=== PATIENT | female | born 1995 | race Caucasian/White ===

== ENCOUNTER 2021-05-08 04:46 | Emergency (ER) | payer OTHER ==
[2021-05-08 05:09] VITALS: BP 130/90; PULSE 65; TEMP 97.8; BMI 31.2
[2021-05-08] MEDS ORDERED: SODIUM CHLORIDE NASAL SPRAY 44 ML BOTTLE NS ONE (05:35)
== END 2021-05-08 06:32 | disposition home or self-care (01) ==
LOC: JER 04:46
DX: R09.81 Nasal congestion (principal); R05.1 Acute cough
CPT/HCPCS: 99283-25

== ENCOUNTER 2023-01-12 22:48 | Emergency (ER) | payer OTHER ==
[2023-01-12 22:53] VITALS: BP 121/83; PULSE 83; RESP 19; TEMP 98.3; BMI 31.8
[2023-01-12] MEDS ORDERED: KETOROLAC TROMETHAMINE 30 MG/1 ML VIAL IM ONE (23:58)
[2023-01-13] MEDS ORDERED: KETOROLAC TROMETHAMINE 15 MG/ML VIAL ONE (00:01)
== END 2023-01-13 01:19 | disposition home or self-care (01) ==
LOC: JER 22:48
PROC: 3E0233Z Introduction of Anti-inflammatory into Muscle, Percutaneous Approach (ICD-10-PCS; principal; 2023-01-12)
DX: M79.662 Pain in left lower leg (principal); S93.402S Sprain of unspecified ligament of left ankle, sequela
CPT/HCPCS: 73610-TC-LT-FY; 73630-TC-LT; 99284-25